=== PATIENT | female | born 1970 | race Caucasian/White ===

== ENCOUNTER 2020-01-08 08:38 | Day surgery (SDC) | payer OTHER ==
[2020-01-08] MEDS ORDERED: Marcaine 0.5% SDV 10 ML IM ONE (08:39)
[2020-01-08] MEDS ORDERED: Ketamine HCl 50 MG/ML ONE (10:05)
[2020-01-08] MEDS ORDERED: DIPRIVAN 200 MG/20 ML IV ONE ×2 (10:05→10:12)
--- NOTE | 2020-01-08 10:59 | XRAY ---
Indication: Left genicular nerve block. Intraoperative fluoroscopy was provided for 9 seconds. 2 digital spot images of the left knee submitted for interpretation demonstrates anterior needle tips projecting medial/lateral supracondylar and medial tibial plateau. Correlate with intraoperative findings/report.
--- NOTE | 2020-01-08 10:59 | XRAY ---
Indication: Right genicular nerve block. Intraoperative fluoroscopy was provided for 11 seconds. 2 digital spot images of the right knee submitted for interpretation demonstrates anterior needle tips projecting medial/lateral supracondylar and medial tibial plateau. Correlate with intraoperative findings/report.
--- NOTE | 2020-01-08 11:13 | XRAY ---
9 seconds fluoroscopy time in surgery for left genicular nerve block.
--- NOTE | 2020-01-08 11:23 | XRAY ---
11 seconds fluoroscopy time in surgery for right genicular nerve block.
[2020-01-08] MEDS ORDERED: Lactated Ringers 1,000 ML IV ONE (14:44)
== END 2020-01-08 10:35 | disposition home or self-care (01) ==
LOC: SDC-PAIN 08:38
PROVIDERS: ATTEND Psychiatry & Neurology Pain Medicine
DX: M17.0 Bilateral primary osteoarthritis of knee (principal); J44.9 Chronic obstructive pulmonary disease, unspecified; K21.9 Gastro-esophageal reflux disease without esophagitis; M06.9 Rheumatoid arthritis, unspecified; Z79.899 Other long term (current) drug therapy
CPT/HCPCS: 64454; 73560; 77002; 84703; J2704

== ENCOUNTER 2020-05-06 09:09 | Day surgery (SDC) | payer MEDICARE, OTHER ==
[~2020-05-06 09:09] MED LIST: DIPRIVAN 200 MG/20 ML IV ONE; Ketamine HCl 50 MG/ML ONE; SUBLIMAZE 100 MCG/2 ML ONE
[2020-05-06] MEDS ORDERED: BUPIVACAINE 0.5% VIAL IJ ONE (09:10)
[2020-05-06] MEDS ORDERED: Depo-Medrol 40 MG/ML IM ONE (09:10)
[2020-05-06] MEDS ORDERED: Lactated Ringers 1,000 ML IV ONE (13:52)
--- NOTE | 2020-05-07 14:55 | XRAY ---
13 seconds fluoroscopy time in surgery for left intra-articular knee injection.
--- NOTE | 2020-05-07 15:05 | XRAY ---
7 seconds fluoroscopy time in surgery for right intra-articular knee injection.
--- NOTE | 2020-05-09 22:30 | XRAY ---
Indication: Left knee injection. Intraoperative fluoroscopy was provided for 13 seconds. A single digital spot image submitted for interpretation demonstrates the needle tip to be in the projection of the intercondylar notch. A small amount contrast has been injected for needle tip placement. Correlate with intraoperative findings/report.
--- NOTE | 2020-05-09 22:32 | XRAY ---
Indication: Right knee injection. Intraoperative fluoroscopy was provided for 7 seconds. A single digital spot image submitted for interpretation demonstrates the needle tip in the projection of the intercondylar notch. A small amount contrast has been injected for needle tip placement. Correlate with intraoperative findings/report.
== END 2020-05-06 11:30 | disposition home or self-care (01) ==
LOC: SDC-PAIN 09:09
PROVIDERS: ATTEND Psychiatry & Neurology Pain Medicine
DX: M17.0 Bilateral primary osteoarthritis of knee (principal); J44.9 Chronic obstructive pulmonary disease, unspecified; M06.9 Rheumatoid arthritis, unspecified; K21.9 Gastro-esophageal reflux disease without esophagitis; Z79.899 Other long term (current) drug therapy
CPT/HCPCS: 20610; 73560; 77002; 84703; J1030; J2704; J3010; Q9966

== ENCOUNTER 2020-09-09 13:55 | Day surgery (SDC) | payer MEDICARE, OTHER ==
[2020-09-09] MEDS ORDERED: BUPIVACAINE 0.5% VIAL IJ ONE (13:56)
[2020-09-09] MEDS ORDERED: Depo-Medrol 40 MG/ML IM ONE (13:56)
[2020-09-09] MEDS ORDERED: DIPRIVAN 200 MG/20 ML IV ONE (15:08)
[2020-09-09] MEDS ORDERED: Ketamine HCl 50 MG/ML ONE (15:08)
[2020-09-09] MEDS ORDERED: Lactated Ringers 1,000 ML IV ONE (15:57)
--- NOTE | 2020-09-09 16:43 | XRAY ---
Indication: Right greater trochanter bursa injection. Intraoperative fluoroscopy provided for 7 seconds. Single digital spot images submitted for interpretation demonstrates needle tip projecting just lateral to the right greater trochanter. Small amount of contrast injected for needle tip placement. Correlate with intraoperative findings/report.
--- NOTE | 2020-09-09 16:45 | XRAY ---
7 seconds of fluoroscopy was used in surgery for a right hip greater trochanteric bursa injection.
== END 2020-09-09 15:32 | disposition home or self-care (01) ==
LOC: SDC 13:55
PROVIDERS: ATTEND Psychiatry & Neurology Pain Medicine
DX: M47.816 Spondylosis without myelopathy or radiculopathy, lumbar region (principal); J44.9 Chronic obstructive pulmonary disease, unspecified; K21.9 Gastro-esophageal reflux disease without esophagitis; M06.9 Rheumatoid arthritis, unspecified; Z79.899 Other long term (current) drug therapy
CPT/HCPCS: 20610; 73501; 77002; 77003; 84703; J1030; J2704; Q9966